=== PATIENT | female | born 1985 ===

== ENCOUNTER 2022-02-23 17:11 | Emergency (ER) | payer SELFPAY ==
[~2022-02-23] VITALS: Ht 162.6 cm; Wt 89.4 kg
[2022-02-23 17:43] LABS: APPEARANCE,URINE Clear (CLEAR); BILIRUBIN,URINE Negative (NEGATIVE); COLOR,URINE Yellow (YELLOW); GLUCOSE, URINE (UA) >=1000 mg/dL (NEGATIVE); KETONES,URINE >=160 mg/dL (NEGATIVE); LEUKOCYTE ESTERASE ,URINE Negative (NEGATIVE); NITRATE,URINE Negative (NEGATIVE); OCCULT BLOOD,URINE Negative (NEGATIVE); PH,URINE 5.5 (5.0-8.0); PROTEIN,URINE Negative (NEGATIVE); UROBILINOGEN,URINE 0.2 mg/dL (0.2-1.0)
[2022-02-23 17:53] LABS: HCG,QUAL RESULT NEGATIVE (NEGATIVE)
[2022-02-23 17:55] LABS: BACTERIA,URINE Rare /HPF (None Seen); RBC,URINE 0-1 /HPF (0-1); SQUAMOUS EPITHELIAL CELL,UR Few /HPF (0-2); WBC,URINE 0-1 /HPF (0-1)
[2022-02-23 18:09] LABS: HEMATOCRIT 39.6 % (36-48); MEAN CORPUSCULAR HEMOGLOBIN 26.8 pg (27.0-33.0); MEAN CORPUSCULAR HGB CONC 32.1 g/dL (32.0-36.0); MEAN CORPUSCULAR VOLUME 83.7 fL (79-99); PLATELET COUNT (AUTO) 384 K/uL (130-400); RED BLOOD CELL COUNT(AUTO) 4.73 MIL/uL (4.00-5.50); RED CELL DISTRIBUTION WIDTH 13.8 % (11.0-15.5); WHITE BLOOD COUNT (AUTO) 20.7 K/uL (4.8-10.8)
[2022-02-23 18:21] LABS: CREATININE 0.7 mg/dL (0.5-1.5); POTASSIUM 3.9 mmol/L (3.5-5.1)
[2022-02-23 18:30] LABS: ALBUMIN 3.6 g/dL (3.5-5.0); BILIRUBIN,TOTAL 0.3 mg/dL (0.2-1.0); TOTAL PROTEIN, SERUM 7.3 g/dL (6.0-8.3)
[2022-02-23] MEDS ORDERED: 0.9%NACL 1000ML 1,000 ML IV ONE (18:30)
[2022-02-23 18:42] LABS: BAND NEUTROPHILS % (MANUAL) 7 % (0-2); LYMPHOCYTES % (MANUAL) 2 % (22-44); MAN.DIFF COMMENT-IMPRESSION MANUAL DIFFERENTIAL; MONOCYTES % (MANUAL) 3 % (2-9); SEGMENTED NEUTROPHILS % 88 % (40-70)
[2022-02-23] MEDS ORDERED: FAMOTIDINE 20MG VIAL IV ONE (19:00)
[2022-02-23] MEDS ORDERED: ONDANSETRON 4MG INJ IVP ONE (19:00)
[2022-02-23] MEDS ORDERED: MORPHINE 4 MG SYG IVP ONE (19:00)
[2022-02-23] MEDS ORDERED: IOHEXOL-350 75 ML VIAL IV ONE (19:37)
[2022-02-23] MEDS ORDERED: 0.9% NACL 500ML IV.SOLN 500 ML IV ONE (21:00)
[2022-02-23] MEDS ORDERED: ONDA4TAB10 PO (21:07)
[2022-02-23] MEDS ORDERED: FAMO-136 PO (21:07)
[2022-02-23] MEDS ORDERED: L.AC1CAP6 PO (21:07)
[2022-02-23] MEDS ORDERED: DICY20TA2 PO (21:07)
[2022-02-23 21:23] VITALS: BP 126/82
== END 2022-02-23 21:25 | disposition home or self-care (01) ==
LOC: EDH 17:11
DX: K52.9 Noninfective gastroenteritis and colitis, unspecified (principal); D72.829 Elevated white blood cell count, unspecified; J45.909 Unspecified asthma, uncomplicated; E11.9 Type 2 diabetes mellitus without complications; M79.7 Fibromyalgia; Z98.890 Other specified postprocedural states
CPT/HCPCS: 36415; 74177; 80053; 81001; 81025; 84484; 85025; 93005; 96361; 96374; 96375; 99285; J2270; J2405; J3490; J7030; J7040; Q9967